=== PATIENT | male | born 1945 | race Caucasian/White ===

== ENCOUNTER 2021-08-18 06:01 | Inpatient (IN) ==
[2021-08-18] MEDS ORDERED: Ringers Solution, Lactated 1,000 ML IVC SCH (06:30)
[2021-08-18] MEDS ORDERED: Vancomycin 1,500 MG/265 ML IV.SOLN IVPB ONE ×2 (07:00→20:00)
[2021-08-18] MEDS ORDERED: *HR* Norepinephrine 4 MG/4 ML VIAL IVC ONE (07:05)
[2021-08-18] MEDS ORDERED: *HR* Vasopressin 20 UNIT/ML VIAL ONE (07:06)
[2021-08-18] MEDS ORDERED: Lidocaine -MPF 4% 5 ML AMPUL ONE (07:15)
[2021-08-18] MEDS ORDERED: Heparin 1,000 UNITS/500 mL 500 ML ONE (07:17)
[2021-08-18] MEDS ORDERED: *HR* Propofol 200 MG/20 ML VIAL IVP ONE (07:18)
[2021-08-18] MEDS ORDERED: *HR* Rocuronium Bromide 50 MG/5 ML VIAL ONE (07:20)
[2021-08-18] MEDS ORDERED: *HR* Succinylcholine 200 MG/10 ML VIAL IVP ONE (07:20)
[2021-08-18] MEDS ORDERED: Lidocaine -MPF 2% 5 ML VIAL ONE (07:20)
[2021-08-18] MEDS ORDERED: *HR* Phenylephrine 10 MG/ML VIAL ONE (07:20)
[2021-08-18] MEDS ORDERED: *HR* Remifentanil 2 MG VIAL IVP ONE (07:21)
[2021-08-18] MEDS ORDERED: Heparin 1,000 UNITS/500 mL 1,000 ML ONE (07:29)
[2021-08-18] MEDS ORDERED: Protamine Sulfate 50 MG/5 ML VIAL IVP ONE (07:29)
[2021-08-18] MEDS ORDERED: 0.9 % Sodium Chloride 500 ML IVC SCH (07:30)
[2021-08-18] MEDS ORDERED: *HR* OxyCODONE Immed Rel 5 MG TABLET PO PRN (07:35)
[2021-08-18] MEDS ORDERED: Promethazine 6.25 MG in Water for inj. (sterile) 20 ML IVPB PRN (07:35)
[2021-08-18] MEDS ORDERED: *HR* HYDROmorphone PF 0.5 MG/0.5 ML SYRINGE IVP PRN (07:35)
[2021-08-18] MEDS ORDERED: Ondansetron 4 MG/2 ML VIAL IVP PRN ×2 (07:35→11:57)
[2021-08-18] MEDS ORDERED: ceFAZolin 1,000 MG, Sodium Chloride IRRigation 1,000 ML IR ONE (07:45)
[2021-08-18] MEDS ORDERED: EPHEDrine 50 MG/ML VIAL ONE (08:01)
[2021-08-18] MEDS ORDERED: EPINEPHrine 1 MG/ML VIAL ONE (08:01)
[2021-08-18] MEDS ORDERED: *HR* Heparin 5,000 UNIT/ML VIAL ONE (08:37)
[2021-08-18] MEDS ORDERED: Acetaminophen IV 1,000 MG/100 ML BAG IVPB ONE ×2 (09:22→11:36)
[2021-08-18] MEDS ORDERED: Ondansetron 4 MG/2 ML VIAL ONE (09:23)
[2021-08-18] MEDS ORDERED: Sugammadex Sodium 200 MG/2 ML VIAL IV ONE (10:55)
[2021-08-18] MEDS ORDERED: TADALAFIL 20 MG PO PRN (11:57)
[2021-08-18] MEDS ORDERED: Naloxone 0.4 MG/ML INJ IVP PRN (11:57)
[2021-08-18] MEDS ORDERED: Acetaminophen 325 MG TABLET PO PRN (11:57)
[2021-08-18] MEDS ORDERED: *HR* HYDROcodone/Acet 5/325 mg TABLET PO PRN (11:57)
[2021-08-18] MEDS: *HR* OxyCODONE Immed Rel 5 MG TABLET PO PRN (14:14)
[2021-08-18] MEDS: lamoTRIgine 100 MG TABLET PO SCH (20:40)
[2021-08-19 03:21] LABS: Basophils % 0.2 %; Eosinophils % 0.4 %; Hematocrit 31.9 % (37.5-50.1); Hemoglobin 10.6 g/dL (12.9-16.9); Immature Granulocytes % 0.2 % (0-4); Lymphocytes # 1.1 K/mcL (0.6-4.6); Lymphocytes % 12.2 %; Mean Corpuscular HGB Conc 33.2 g/dL (31.6-35.5); Mean Corpuscular Hemoglobin 31.2 pg (28.0-33.3); Mean Corpuscular Volume 93.8 fL (83.0-100.0); Mean Platelet Volume 10.2 fL (9.4-12.4); Monocytes # 1.1 K/mcL (0.0-1.3); Monocytes % 11.7 %; Neutrophils # 6.8 K/mcL (1.6-8.9); Platelet Count 138 K/mcL (140-400); Segmented Neutrophils % 75.3 %
[2021-08-19 03:42] LABS: BUN/Creatinine Ratio 16 (6-26); Blood Urea Nitrogen 20 mg/dL (8-23); Calcium 8.4 mg/dL (8.6-10.3); Carbon Dioxide 25 mEq/L (23-29); Chloride 106 mEq/L (98-107); Glucose 96 mg/dL (70-105); Osmolality,Calculated 288 (280-300); Potassium 4.2 mEq/L (3.5-5.1); Sodium 138 mEq/L (136-145); eGFR For African Americans > 60 (> 60); eGFR For Non-African Americans 55 (> 60)
[2021-08-19] MEDS: *HR* OxyCODONE Immed Rel 5 MG TABLET PO PRN ×2 (04:30→10:18)
[2021-08-19 08:17] VITALS: O2SAT 92
[2021-08-19] MEDS: lamoTRIgine 100 MG TABLET PO SCH (08:20)
[2021-08-19] MEDS ORDERED: lisinopriL 5 MG TABLET PO SCH (09:00)
[2021-08-19] MEDS ORDERED: Metoprolol XL (24 HR) Succ 25 MG TAB.ER.24H PO SCH (09:00)
[2021-08-19] MEDS ORDERED: Multivit/Ca/Min/Fe/FA 1 TAB TABLET PO SCH (09:00)
[2021-08-19 13:00] VITALS: BP 138/52; PULSE 68; TEMP 98.3
== END 2021-08-19 13:24 | disposition home or self-care (01) | DRG 39 ==
LOC: SAMDAY 06:01 → 2NNU 11:56
PROVIDERS: ADMIT Surgery Vascular Surgery; ATTEND Surgery Vascular Surgery